=== PATIENT | male | born 1970 | race Caucasian/White ===

== ENCOUNTER 2016-12-30 12:17 | Emergency (ER) | payer SELFPAY ==
[~2016-12-30] VITALS: Ht 165.1 cm; Wt 98.0 kg
[2016-12-30 12:34] VITALS: BP 131/81
--- NOTE | 2016-12-30 12:53 | NUR ---
PT PRESENTS TO ER W/C/O SORE THROAT X3 DAYS. PT STATES HE'S BEEN COUGHING UP BLOOD SINCE LAST NOC.TOOK IBUPROFEN AT HOME BUT DIDN'T GET RELIEF FROM PAIN;DENIES N/V/D; SKIN IS PINK/WARM/DRY; AAOX4 WITH EVEN AND STEADY GAIT; LUNGS CLEAR BL; HR EVEN AND REGULAR; PT DENIES ANY FEVER, CP, SOB, OR COUGH AT THIS TIME; PATIENT STATES PAIN OF 9/10 AT THIS TIME;PATIENT POSITIONED FOR COMFORT; HOB ELEVATED; BEDRAILS UP X2; BED DOWN. ER MD MADE AWARE OF PT STATUS.
--- NOTE | 2016-12-30 12:55 | NUR ---
AAO PT BEING EVALUATED BY DR BOOGIE AT BEDSIDE
[2016-12-30] MEDS ORDERED: predniSONE 20 MG TAB PO ONE (13:00)
[2016-12-30 14:42] VITALS: BP 131/81
--- NOTE | 2016-12-30 14:42 | NUR ---
Patient discharged with v/s stable. Written and verbal after care instructions given and explained. Patient alert, oriented and verbalized understanding of instructions. Ambulatory with steady gait. All questions addressed prior to discharge. ID band removed. Patient advised to follow up with PMD. Rx of TESSALON PERLES AND AMOXICILLIN given. Patient educated on indication of medication including possible reaction and side effects. Opportunity to ask questions provided and answered.
== END 2016-12-30 14:42 | disposition home or self-care (01) ==
LOC: MED 12:17
DX: J02.9 Acute pharyngitis, unspecified (principal)
CPT/HCPCS: 36415; 71010; 86308; 87081; 99285; J7512; Q0092

== ENCOUNTER 2020-01-30 10:37 | Inpatient (IN) | payer MEDICAID, SELFPAY ==
[~2020-01-30] VITALS: Ht 160 cm; Wt 95.3 kg
[2020-01-30 10:53] VITALS: BP 138/84
--- NOTE | 2020-01-30 10:58 | NUR ---
49/M BIB FAMILY C/O COUGH, SOB,CHILL, SORE THROAT, BODY ACHES X 8 DAYS. ORAL TEMP 103, P 94, RR 40, O2 SAT 91% AT THIS TIME.
[2020-01-30] MEDS ORDERED: ACETAMINOPHEN 325 MG TAB PO ONE (11:05)
--- NOTE | 2020-01-30 11:21 | NUR ---
PT TAKEN TO X RAY
--- NOTE | 2020-01-30 13:00 | NUR ---
PT TAKEN TO BED 1, ASSUMED PT CARE AT THIS TIME
--- NOTE | 2020-01-30 13:15 | NUR ---
49 YEAR OLD MALE COMPLAINS OF COUGH AND SOB X 8 DAYS. PT STATES HAS GRADUALLY GOTTEN WORSE. PT 88% ON RA, PLACED ON 4L NC AND NOW O2 SATURATION 95% AND RR 20. PT PLACED ON BEDSIDE MONITOR, VS STABLE. PT AOX4, BREATHING LABORED AND EVEN, SKIN WARM AND DRY. BED IN LOWEST POSITION, LOCKED, BED RAIL UPX1. PMH - DENIES ALLERGIES - NKA
--- NOTE | 2020-01-30 13:43 | NUR ---
COVID, TAZ, FLU, AND RSV SWAB SENT TO LAB
[2020-01-30 13:58] LABS: BASOPHILS % (AUTO) 0.2 % (0.0-2.0); EOSINOPHILS % (AUTO) 0.1 % (0.0-4.0); HEMATOCRIT 40.4 % (36-52); HEMOGLOBIN 14.1 g/dL (12.0-18.0); LYMPHOCYTES # (AUTO) 0.5 K/uL (2.0-11.5); LYMPHOCYTES % (AUTO) 8.4 % (20.5-51.1); MEAN CORPUSCULAR HEMOGLOBIN 30 pg (27-31); MEAN CORPUSCULAR HGB CONC 35 g/dL (33-37); MEAN CORPUSCULAR VOLUME 86.8 fL (80-94); MONOCYTES # (AUTO) 0.3 K/uL (0.8-1.0); MONOCYTES % (AUTO) 6.3 % (1.7-9.3); NEUTROPHILS # (AUTO) 4.6 K/uL (1.8-7.7); PLATELET COUNT (AUTO) 139 K/uL (140-450); RED BLOOD CELL COUNT(AUTO) 4.65 MIL/uL (4.20-6.10); RED CELL DISTRIBUTION WIDTH 13.3 % (11.6-13.7); WHITE BLOOD COUNT (AUTO) 5.4 K/uL (4.8-10.8)
[2020-01-30 14:08] LABS: APPEARANCE,URINE CLEAR (CLEAR); BILIRUBIN,URINE 1+ (NEGATIVE); BLOOD, URINE NEGATIVE (NEGATIVE); COLOR,URINE YELLOW (YELLOW); LEUKOCYTE ESTERASE ,URINE NEGATIVE (NEGATIVE); NITRITE, URINE NEGATIVE (NEGATIVE); UGLUCOSE NEGATIVE (NEGATIVE)
[2020-01-30 14:15] LABS: ALBUMIN 3.2 g/dL (3.4-5.0); ANION GAP 13.7 (8-16); CARBON DIOXIDE 23.9 mmol/L (21-32); CREATININE 0.9 mg/dL (0.6-1.3); POTASSIUM 3.6 mmol/L (3.5-5.1); TOTAL BILIRUBIN 0.6 mg/dL (0.0-1.0)
[2020-01-30 14:19] LABS: PROTHROMBIN TIME 10.3 secs (10.8-13.4)
[2020-01-30 14:47] LABS: C-REACTIVE PROTEIN QUANT 8.6 mg/dL (0.0-0.9)
--- NOTE | 2020-01-30 15:00 | NUR ---
PT ALERT AND AWAKE, BREATHING EVEN AND UNLABORED
[2020-01-30 15:27] LABS: CKMB RELATIVE INDEX 0.2 (0.0-2.5); CREATINE KINASE MB 1.8 ng/mL (0-3.6)
[2020-01-30 15:45] LABS: RSV NEGATIVE (NEGATIVE)
[2020-01-30] MEDS ORDERED: HYDROcodone/APAP 7.5/325 MG 1 TAB PO PRN (16:10)
[2020-01-30] MEDS ORDERED: POTASSIUM CHLORIDE 10 MEQ TABER PO PRN (16:10)
[2020-01-30] MEDS ORDERED: ALBUTEROL HFA MDI 90 MCG/ACTUATION 8 GM INH PRN (16:10)
[2020-01-30] MEDS ORDERED: DOCUSATE SODIUM 100 MG GELCAP PO PRN (16:10)
[2020-01-30] MEDS ORDERED: ACETAMINOPHEN 325 MG TAB PO PRN (16:10)
[2020-01-30] MEDS ORDERED: ONDANSETRON 4 MG/2 ML VIAL IM/IVP PRN (16:10)
--- NOTE | 2020-01-30 17:00 | NUR ---
PT ALERT AND AWAKE, BREATHING EVEN AND UNLABORED
[2020-01-30] MEDS ORDERED: cefTRIAXone 1,000 MG VIAL ONE (17:06)
[2020-01-30] MEDS: NACL 0.9% 1,000 ML IV SCH (17:19)
[2020-01-30 18:17] LABS: CHOL/HDL RATIO 3.6 (1-4.5); FREE T4 (FREE THYROXINE) 1.26 ng/dL (0.76-1.46); THYROID STIMULATING HORMONE 1.93 uIU/mL (0.34-3.74)
--- NOTE | 2020-01-30 19:09 | NUR ---
REPORT GIVEN TO STEPHANIE MCDONALD, TRANSFER OF CARE AT THIS TIME
--- NOTE | 2020-01-30 19:10 | NUR ---
PT ALERT AND AWAKE, BREATHING EVEN AND UNLABORED
--- NOTE | 2020-01-30 19:15 | NUR ---
REPORT PROVIDED BY HARRY MITCHELL FOR CONTINUATION OF CARE.
--- NOTE | 2020-01-30 19:26 | NUR ---
PROVIDED PT W/ WATER AT THIS TIME. NO ACUTE DISTRESS NOTED . VSS.
--- NOTE | 2020-01-30 21:00 | NUR ---
PT RESTING IN BED, LOCKED AND IN LOWEST POSITION, HOB ELEVATED, SIDE RAIL X2 FOR PT SAFETY. VSS. RR EVEN AND UNLABORED.
--- NOTE | 2020-01-30 23:15 | NUR ---
PT PROVIDED WATER FOR COMFORT AT THIS TIME.
--- NOTE | 2020-01-31 00:30 | NUR ---
PT PROVIDED NEW URINAL AND REPOSITIONED FOR COMFORT.
--- NOTE | 2020-01-31 01:30 | NUR ---
PT RESTING IN BED, LOCKED AND IN LOWEST POSITION, HOB ELEVATED, SIDE RAIL X2. RR EVEN AND UNLABORED. NO ACUTE DISTRESS NOTED.
--- NOTE | 2020-01-31 01:52 | NUR ---
Patient will be admitted to care of DR. YEN. Admited to TELEMETRY. Will go to room 105B. Belongings list completed. Report to HARRY MELARA.
[2020-01-31 02:00] VITALS: BP 126/76
--- NOTE | 2020-01-31 02:00 | NUR ---
RECEIVED PT FROM ER NURSE FOR CONTINUITY OF CARE. PT ARRIVED VIA GURNEY AND WALKED TO HIS BED. GAIT WAS STEADY. A&OX4, AWAKE AND ALERT. ON 4L O2 NC WITH BREATHING UNLABORED. CHEST RISE AND FALL SYMMETRICAL. BOWEL SOUNDS PRESENT. SKIN IS WARM, DRY, AND INTACT. IV IS IN RIGHT AC 20 GAUGE RUNNING NS AT 60 ML PER HOUR PER ORDER. PT'S PRIMARY LANGUAGE IS AFGHAN, BUT SPEAKS AND UNDERSTANDS SAMI ADEQUATELY. PLAN OF CARE DISCUSSED. PT IS STABLE AT THIS TIME.
--- NOTE | 2020-01-31 02:05 | NUR ---
PT TRANSFERRED TO TELEMETRY ROOM 105B VIA RBRADGATE BY RN & EMT. RECEIVING NURSE HARRY MELARA MADE AWARE OF PT PLACED IN ROOM.
--- NOTE | 2020-01-31 03:36 | NUR ---
PT IS AWAKE IN BED IN SEMI FOWLERS POSITION. NO RESPIRATORY DISTRESS NOTED. PT IS COUGHING, NONPRODUCTIVE. O2 SAT IS 95% ON 4L O2 NC. CELL PHONE IS WITHIN REACH. WILL CONTINUE TO MONITOR.
[2020-01-31 04:00] VITALS: BP 97/60
--- NOTE | 2020-01-31 05:30 | NUR ---
ROUNDED ON PT. HE IS AWAKE AND ALERT. STATES HE IS OKAY AT THIS TIME. DENIES PAIN OR SOB. NO RESPIRATORY DISTRESS NOTED. IV FLUIDS INFUSING. PT IS STABLE.
--- NOTE | 2020-01-31 07:10 | NUR ---
ENDORSED PT TO DAY SHIFT NURSE. PT IS STABLE AT THIS TIME. O2 SAT 95%. PLAN OF CARE DISCUSSED.
--- NOTE | 2020-01-31 07:30 | NUR ---
RECEIVED PT AWAKE. NO SOB NOTED. NO SIGNS OF PAIN AT THIS TIME. BED ON LOW POSITION, WITH 3 SIDE RAILS RAISED UP, CALL LIGHT WITHIN REACH. WILL CONTINUE TO MONITOR PT.
[2020-01-31 08:00] VITALS: BP 117/64
--- NOTE | 2020-01-31 08:39 | NUR ---
PATIENT HAS BEEN SCREENED AND CATEGORIZED MODERATE NUTRITION RISK. PATIENT WILL BE SEEN WITHIN 3-5 DAYS OF ADMISSION. 02/02/20 02/04/[address]
[2020-01-31] MEDS ORDERED: AZITHROMYCIN 250 MG TAB PO SCH (09:00)
[2020-01-31] MEDS ORDERED: ZINC SULF 220 MG CAP PO SCH (09:00)
[2020-01-31] MEDS ORDERED: ASCORBIC ACID 500 MG TAB PO SCH (09:00)
[2020-01-31] MEDS: NACL 0.9% 1,000 ML IV SCH (11:53)
[2020-01-31 12:00] VITALS: BP 110/66
--- NOTE | 2020-01-31 12:54 | NUR ---
DC MINE ENGINEERING SUPERINTENDENT: RECEIVED ORDER FOR HOME 02. FAXED ORDER TO [facility]. Addendum: 01/31/20 at 1303 by Brianne Dyer CM MATI MINE ENGINEERING SUPERINTENDENT: RECEIVED A CALL FROM BRENDEN JARAMILLO [facility] THE PATIENTS INSURANCE DOES NOT COVER DME. Addendum: 01/31/20 at 1424 by Brianne Dyer CM MATI MINE ENGINEERING SUPERINTENDENT: SPOKE TO PATIENTS AND DAUGHTER THEY ARE WILLING TO PAY OUT OF POCKET. I LET THEM KNOW TO EXPECT A CALL FROM BRENDEN AT [facility] TO COLLECT A FORM OF PAYMENT. Addendum: 01/31/20 at 1545 by Brianne Dyer CM DC MINE ENGINEERING SUPERINTENDENT: SPOKE TO BRENDEN FROM [facility] THE OXYGEN HAS BEEN PAID FOR AND WILL BE DELIVERED TODAY TO PATIENTS HOME. WHEN PATIENT IS READY FOR DC WILL BRING IT WITH HER
[2020-01-31 16:00] VITALS: BP 111/70
--- NOTE | 2020-01-31 16:10 | NUR ---
SOCIAL WORK NOTE: Patient's Orientation Unable To Assess Information Provided By AKIKO LOU - Comments SW WAS UNABLE TO MEET PATIENT AT BEDSIDE DUE TO MEDICAL CONDITION. SW COMPLETED ASSESSMENT WITH PATIENT'S . Bridal Consultant, Realtionship and Phone Number AKIKO WILILS [phone] Healthcare Power of Visual Education Director No Does Patient Have a POLST No Identifying Problems No Social Work Triggers Is A Social Work Consult Needed No Mandate Report Filed No Explanation Of Identifying Problems PATIENT IS A 49-YEAR-OLD MALE ADMITTED FOR COVID, PNEUMONIA, AND RESPIRATORY FAILURE. PATIENT HAS NO REPORTED PMHX. REPORTED NO HISTORY OF SUBSTANCE ABUSE OR MENTAL HEALTH. Admitted From Home Pre-Admission Level Of Functioning Status Independent/Ambulatory Prior Resources/Services Used In Last 12 Months No Prior Resources Used Prior DME No Prior DME Used Dialysis Comments N/A Living Situation Lives With Family House Patient Had Caregiver No Home Support No Caregiver Issues Financial Issues No Known Financial Issue Referral To The Financial Counselor Needed No Factors/Needs No D/C Needs Identified Pt/Rep Participated In Discharge Plan Yes Patient/Family Agress With Discharge Plan Yes Discharge Plan Comments TENTATIVE DISCHARGE PLAN IS FOR PATIENT TO RETURN HOME. DC Plan Status Initiated
[2020-01-31] MEDS ORDERED: AZIT250T11 PO (17:12)
[2020-01-31] MEDS ORDERED: DEXA6TAB1 PO (17:12)
[2020-01-31] MEDS ORDERED: VITC500 PO (17:12)
[2020-01-31] MEDS ORDERED: ZINC220C28 PO (17:12)
[2020-01-31] MEDS ORDERED: FLU VACCINE QS2020-21 0.5 ML SYR IMVAC PRN (17:30)
--- NOTE | 2020-01-31 18:30 | NUR ---
CALLED PT'S DAUGHTER FREDRICK, STATED THAT OXYGEN IS ALREADY DELIVERED. INSTRUCTED TO BRING THE PORTABLE O2 HERE. DISCHARGE INSTRUCTIONS GIVEN TO PT'S 18 YEAR OLD DAUGHTER WHO SPEAKS [place] WELL, WHICH VERBALIZED FULL UNDERSTANDING OF THE INSTRUCTIONS GIVEN AND THE NEED TO FOLLOW UP WITH OWN PCP WITHIN 3-5 DAYS. NOTIFIED FREDRICK THAT THE PRESCRIPTION IS READY AT [facility].
--- NOTE | 2020-01-31 19:00 | NUR ---
PT IS READY TO GO HOME, WAITING FOR FAMILY TO BRING THE PORTABLE OXYGEN. ARM BANDS AND IV REMOVED, CANNULA TIP INTACT. DISCHARGE INSTRUCTIONS GIVEN TO PT WHICH VERBALIZED FULL UNDERSTANDING OF THE INSTRUCTIONS GIVEN AND THE NEED TO FOLLOW UP WITH OWN PCP WITHIN 3-5 DAYS. WILL ENDORSE TO NEXT SHIFT NURSE FOR CONTINUITY OF CARE.
[2020-02-01 08:07] LABS: T4 (THYROXINE) 8.4 ug/dL (4.5-12.0)
== END 2020-01-31 20:05 | disposition home or self-care (01) | DRG 137 ==
LOC: MED 10:37 → MTU 16:12
PROVIDERS: ADMIT Emergency Medicine; ATTEND Emergency Medicine
DX: U07.1 COVID-19 (principal); J12.89 Other viral pneumonia; J96.01 Acute respiratory failure with hypoxia; E87.1 Hypo-osmolality and hyponatremia
CPT/HCPCS: 36415; 36600; 71045; 80053; 81003; 82550; 82553; 82728; 82803; 83036; 83605; 83615; 83880; 84436; 84439; 84443; 84479; 84484; 85025; 85379; 85384; 85610; 85730; 86140; 87040; 87081; 87086; 87420; 87804; 93005; 96365; 99291; J0696; J1644; J7060; U0003